=== PATIENT | male | born 1960 | race Caucasian/White ===

== ENCOUNTER 2021-10-28 20:01 | Emergency (ER) | payer SELFPAY ==
[~2021-10-28] VITALS: Ht 165.1 cm; Wt 72.6 kg
== END 2021-10-28 21:22 | disposition home or self-care (01) ==
LOC: ER 20:01
DX: L23.7 Allergic contact dermatitis due to plants, except food (principal); F17.210 Nicotine dependence, cigarettes, uncomplicated
CPT/HCPCS: A9270; J0702; J3301